=== PATIENT | female | born 1940 | race Hispanic/Latino ===

== ENCOUNTER → 2023-11-08 | Outpatient (CLI) | payer OTHER ==
[~2023-11-08] MED LIST: AMLO-257 PO; ASCO100031 PO; ASPI-1197 PO; CALC-1125 PO; CHOL100040 PO; GADOTERATE MEGLUMINE 10 MMOL/20 ML VIAL IV ONE; GLIP1TAB6 PO; LOVA40TA2 PO; MULT-1258 PO; OMEP20CA12 PO; TRAM50TA4 PO; VALS320T16 PO; VITA100059 PO
== END | disposition home or self-care (01) ==
LOC: RAH 11:00
PROVIDERS: ATTEND Family Medicine
DX: S63.502A Unspecified sprain of left wrist, initial encounter (principal); S60.212A Contusion of left wrist, initial encounter; M19.032 Primary osteoarthritis, left wrist; M25.432 Effusion, left wrist; W19.XXXA Unspecified fall, initial encounter; Y93.89 Activity, other specified; Y92.89 Other specified places as the place of occurrence of the external cause; Y99.8 Other external cause status
CPT/HCPCS: 73223; A9575